=== PATIENT | female | born 1990 | race Caucasian/White ===

== ENCOUNTER 2022-06-14 16:53 | Inpatient (IN) | payer OTHER ==
[~2022-06-14] VITALS: Ht 172.7 cm; Wt 122.5 kg
[2022-06-14 18:04] LABS: HEMOGLOBIN 10.2 gm/dl (12.3-15.3); RED BLOOD COUNT 3.7 M/UL (4.00-5.10)
[2022-06-14] MEDS ORDERED: PROTONIX40 MG PO (18:31)
[2022-06-14] MEDS ORDERED: IRON325 M1 PO (18:31)
[2022-06-14] MEDS ORDERED: PRENATAL TABLE1 EAC6 PO (18:32)
[2022-06-15] MEDS ORDERED: DOCUSATE SODIU250 MG PO (17:36)
[2022-06-15] MEDS ORDERED: IBUPROFEN600 MG PO (17:36)
[2022-06-15] MEDS ORDERED: HYDROCODONE-AC1 EACH PO (17:37)
[2022-06-16 07:14] LABS: HEMOGLOBIN 8.6 gm/dl (12.3-15.3)
== END 2022-06-17 11:25 | disposition home or self-care (01) | DRG 807 ==
LOC: GENOP 16:53 → OB 17:09
PROVIDERS: Obstetrics & Gynecology; ADMIT Obstetrics & Gynecology
PROC: 10E0XZZ Delivery of Products of Conception, External Approach (ICD-10-PCS; principal; 2022-06-15)
PROC: 0KQM0ZZ Repair Perineum Muscle, Open Approach (ICD-10-PCS; 2022-06-15)
PROC: 10907ZC Drainage of Amniotic Fluid, Therapeutic from Products of Conception, Via Natural or Artificial Opening (ICD-10-PCS; 2022-06-15)
PROC: 3E033VJ Introduction of Other Hormone into Peripheral Vein, Percutaneous Approach (ICD-10-PCS; 2022-06-15)
PROC: 0UH97HZ Insertion of Contraceptive Device into Uterus, Via Natural or Artificial Opening (ICD-10-PCS; 2022-06-15)
DX: O70.1 Second degree perineal laceration during delivery (principal); Z37.0 Single live birth; Z3A.38 38 weeks gestation of pregnancy; Z83.3 Family history of diabetes mellitus
CPT/HCPCS: 81001; 85014; 85018; 85025; 90715; J2590